=== PATIENT | male | born 1935 | race Caucasian/White ===

== ENCOUNTER 2016-11-28 10:47 | Inpatient (IN) | payer BC, MEDICARE ==
[~2016-11-28] VITALS: Ht 185.4 cm; Wt 88.5 kg
[2016-11-28] MEDS ORDERED: ACETAMINOPHEN 325 MG TAB PO PRN (17:25)
[2016-11-28 17:31] VITALS: BP_SYST 178; RESP 15; TEMP 98.1
[2016-11-28 17:32] VITALS: Ht 185.4 cm; Wt 88.5 kg
[2016-11-28] MEDS: CLOPIDOGREL 75 MG TAB PO SCH (17:56)
[2016-11-28] MEDS ORDERED: SODIUM CHLOR 0.9% W/KCL 20MEQ 1,000 ML IV SCH (18:10)
[2016-11-28 19:11] VITALS: BP_SYST 155; RESP 16; TEMP 97.5
[2016-11-28] MEDS: METOPROLOL XL 25 MG TAB PO SCH (20:15)
[2016-11-28] MEDS: COMBIGAN OP SOLN EYE EACH SCH (20:15)
[2016-11-28] MEDS ORDERED: TAMSULOSIN 0.4 MG CAP PO SCH (21:00)
[2016-11-28 23:46] VITALS: BP_SYST 176; RESP 18; TEMP 97.5
[2016-11-29 03:10] VITALS: BP_SYST 162; RESP 18; TEMP 97.8
[2016-11-29 07:40] VITALS: BP_SYST 144; RESP 18; TEMP 97.7
[2016-11-29] MEDS ORDERED: SODIUM CHLOR 0.9% W/KCL 20MEQ 1,000 ML IV SCH (09:15)
[2016-11-29] MEDS ORDERED: COMBIGAN OP SOLN EYE EACH SCH (09:21)
[2016-11-29] MEDS: ENOXAPARIN 40 MG/0.4 ML SYR SUBQ SCH (10:07)
[2016-11-29] MEDS: BRINZOLAMIDE 1% EYE LT SCH ×2 (10:07→19:51)
[2016-11-29] MEDS: CLOPIDOGREL 75 MG TAB PO SCH (10:08)
[2016-11-29] MEDS: MEMANTINE 10 MG TAB PO SCH ×2 (10:08→19:52)
[2016-11-29] MEDS: DONEPEZIL 10 MG TABLET PO SCH (10:08)
[2016-11-29] MEDS: ASPIRIN EC 81 MG TAB PO SCH (10:08)
[2016-11-29] MEDS: METOPROLOL XL 25 MG TAB PO SCH ×2 (10:08→19:52)
[2016-11-29] MEDS: COMBIGAN OP SOLN EYE EACH SCH ×2 (10:08→19:52)
[2016-11-29 10:47] VITALS: BP_SYST 146; RESP 18; TEMP 97.7
[2016-11-29 15:44] VITALS: BP_SYST 150; RESP 18; TEMP 97.8
[2016-11-29] MEDS: TAMSULOSIN 0.4 MG CAP PO SCH (16:07)
[2016-11-29] MEDS: TRAVOPROST Z 0.004% EYE EACH SCH (19:51)
[2016-11-29 20:31] VITALS: BP_SYST 143; RESP 24; TEMP 98.1
[2016-11-29 23:51] VITALS: BP_SYST 153; RESP 20; TEMP 97.5
[2016-11-30 03:59] VITALS: BP_SYST 157; RESP 20; TEMP 98.7
[2016-11-30 07:31] VITALS: BP_SYST 173; RESP 18; TEMP 97.6
[2016-11-30] MEDS: BRINZOLAMIDE 1% EYE LT SCH ×2 (09:38→20:25)
[2016-11-30] MEDS: ENOXAPARIN 40 MG/0.4 ML SYR SUBQ SCH (09:39)
[2016-11-30] MEDS: COMBIGAN OP SOLN EYE EACH SCH ×2 (09:39→20:24)
[2016-11-30] MEDS: MEMANTINE 10 MG TAB PO SCH ×2 (09:40→20:24)
[2016-11-30] MEDS: DONEPEZIL 10 MG TABLET PO SCH (09:40)
[2016-11-30] MEDS: METOPROLOL XL 25 MG TAB PO SCH ×2 (09:40→20:24)
[2016-11-30] MEDS: CLOPIDOGREL 75 MG TAB PO SCH (09:40)
[2016-11-30] MEDS: ASPIRIN EC 81 MG TAB PO SCH (09:40)
[2016-11-30] MEDS ORDERED: SODIUM CHLOR 0.9% W/KCL 20MEQ 1,000 ML IV SCH (10:00)
[2016-11-30 11:18] VITALS: BP_SYST 143; RESP 18; TEMP 97.6
[2016-11-30] MEDS: amLODIPine 2.5 MG TAB PO SCH (11:31)
[2016-11-30 15:22] VITALS: BP_SYST 194; RESP 18; TEMP 97.6
[2016-11-30 15:24] VITALS: BP_SYST 182
[2016-11-30] MEDS: TAMSULOSIN 0.4 MG CAP PO SCH (17:46)
[2016-11-30] MEDS: TRAVOPROST Z 0.004% EYE EACH SCH (20:25)
[2016-11-30 20:38] VITALS: BP_SYST 195; RESP 20; TEMP 97.5
[2016-12-01] VITALS (7 sets, daily range): BP systolic 157–207; RESP 16–20; TEMP 97.4–98.4
[2016-12-01] MEDS: METOPROLOL XL 25 MG TAB PO SCH (08:12)
[2016-12-01] MEDS: ASPIRIN EC 81 MG TAB PO SCH (08:12)
[2016-12-01] MEDS: MEMANTINE 10 MG TAB PO SCH (08:12)
[2016-12-01] MEDS: CLOPIDOGREL 75 MG TAB PO SCH (08:12)
[2016-12-01] MEDS: COMBIGAN OP SOLN EYE EACH SCH (08:13)
[2016-12-01] MEDS: amLODIPine 2.5 MG TAB PO SCH (08:13)
[2016-12-01] MEDS: DONEPEZIL 10 MG TABLET PO SCH (08:13)
[2016-12-01] MEDS: BRINZOLAMIDE 1% EYE LT SCH (08:14)
[2016-12-01] MEDS: ENOXAPARIN 40 MG/0.4 ML SYR SUBQ SCH (08:16)
[2016-12-01] MEDS ORDERED: MAG HYDROX 30 ML UDC PO ONE (12:15)
[2016-12-01] MEDS: BISACODYL 10 MG SUPP RECTAL ONE ×2 (12:28→13:15)
[2016-12-01] MEDS ORDERED: BISACODYL 10 MG SUPP RECTAL ONE (13:13)
== END 2016-12-01 17:53 | DRG 552 ==
LOC: ENRESERVTM → ENRESERVDT → ER 10:47 → EMR 16:33 → ENPENDDIS 16:33 → 5THW 17:20
PROVIDERS: ADMIT Internal Medicine; ATTEND Internal Medicine
CPT/HCPCS: 36415; 72100; 72170; 72220; 80048; 80053; 81001; 82306; 82607; 82746; 83735; 84439; 84443; 85025

== ENCOUNTER 2016-12-01 15:01 | Inpatient (IN) | payer MEDICARE, BC ==
[~2016-12-01] VITALS: Ht 185.4 cm; Wt 98.1 kg
[~2016-12-01 15:01] MED LIST: ACETAMINOPHEN 325 MG TAB PO PRN; ACETAMINOPHEN 650 MG SUPP RECTAL PRN; ALU/MAG/SIM 30 ML UDC PO PRN; FLEET ENEMA 132 ML BTL RECTAL PRN; MAG HYDROX 30 ML UDC PO PRN; PNEUMO VAC 25 MCG/0.5 ML VL IM.VACC ONE
[2016-12-01] MEDS: TAMSULOSIN 0.4 MG CAP PO SCH (18:03)
[2016-12-01 20:16] VITALS: BP_SYST 178; RESP 20; TEMP 97.8
[2016-12-01 20:17] VITALS: BP_SYST 200
[2016-12-01] MEDS: METOPROLOL XL 25 MG TAB PO SCH (20:55)
[2016-12-01] MEDS: MEMANTINE 10 MG TAB PO SCH (20:55)
[2016-12-01] MEDS ORDERED: TUBERCULIN PPD 5 UNIT SYR ID.VACC ONE (21:00)
[2016-12-01] MEDS: BRINZOLAMIDE 1% EYE LT SCH (21:02)
[2016-12-01] MEDS: COMBIGAN OP SOLN EYE EACH SCH (21:03)
[2016-12-01] MEDS: TRAVOPROST Z 0.004% EYE EACH SCH (21:04)
[2016-12-02 04:24] VITALS: BP_SYST 149; RESP 20; TEMP 97.8
[2016-12-02] MEDS: COMBIGAN OP SOLN EYE EACH SCH ×2 (08:34→20:44)
[2016-12-02] MEDS: CLOPIDOGREL 75 MG TAB PO SCH (08:34)
[2016-12-02] MEDS: BRINZOLAMIDE 1% EYE LT SCH ×2 (08:34→20:44)
[2016-12-02] MEDS: ASPIRIN EC 81 MG TAB PO SCH (08:35)
[2016-12-02] MEDS: MEMANTINE 10 MG TAB PO SCH ×2 (08:35→20:43)
[2016-12-02] MEDS: amLODIPine 2.5 MG TAB PO SCH (08:35)
[2016-12-02] MEDS: DONEPEZIL 10 MG TABLET PO SCH (08:35)
[2016-12-02] MEDS: METOPROLOL XL 25 MG TAB PO SCH ×2 (08:35→20:43)
[2016-12-02] MEDS: ENOXAPARIN 40 MG/0.4 ML SYR SUBQ SCH (08:37)
[2016-12-02 09:27] VITALS: BP_SYST 122; RESP 22; TEMP 97.6
[2016-12-02 09:28] VITALS: RESP 22
[2016-12-02] MEDS: TAMSULOSIN 0.4 MG CAP PO SCH (16:05)
[2016-12-02 16:23] VITALS: BP_SYST 139; RESP 20; TEMP 97.5
[2016-12-02] MEDS: TRAVOPROST Z 0.004% EYE EACH SCH (20:44)
[2016-12-03 06:14] VITALS: BP_SYST 172; RESP 18; TEMP 98.6
[2016-12-03] MEDS: MEMANTINE 10 MG TAB PO SCH ×2 (09:24→20:32)
[2016-12-03] MEDS: DONEPEZIL 10 MG TABLET PO SCH (09:24)
[2016-12-03] MEDS: CLOPIDOGREL 75 MG TAB PO SCH (09:24)
[2016-12-03] MEDS: ASPIRIN EC 81 MG TAB PO SCH (09:25)
[2016-12-03] MEDS: METOPROLOL XL 25 MG TAB PO SCH ×2 (09:25→20:32)
[2016-12-03] MEDS: amLODIPine 2.5 MG TAB PO SCH (09:25)
[2016-12-03] MEDS: ENOXAPARIN 40 MG/0.4 ML SYR SUBQ SCH (09:26)
[2016-12-03] MEDS: COMBIGAN OP SOLN EYE EACH SCH ×2 (09:29→20:27)
[2016-12-03] MEDS: BRINZOLAMIDE 1% EYE LT SCH ×2 (09:30→20:36)
[2016-12-03 09:35] VITALS: BP_SYST 135; RESP 20; TEMP 97.7
[2016-12-03 10:54] VITALS: BMI 30.8
[2016-12-03] MEDS: TAMSULOSIN 0.4 MG CAP PO SCH (17:29)
[2016-12-03 18:17] VITALS: BP_SYST 118; RESP 18; TEMP 97.8
[2016-12-03] MEDS: TRAVOPROST Z 0.004% EYE EACH SCH (20:31)
[2016-12-03] MEDS: SKIN TEST: READ AND RECORD XX SCH (20:39)
[2016-12-04 01:37] VITALS: BP_SYST 109; RESP 18; TEMP 97.3
[2016-12-04 01:38] VITALS: TEMP 97.3
[2016-12-04 02:02] VITALS: Ht 185.4 cm; Wt 98.1 kg
[2016-12-04] MEDS: ENOXAPARIN 40 MG/0.4 ML SYR SUBQ SCH (08:07)
[2016-12-04] MEDS: COMBIGAN OP SOLN EYE EACH SCH ×2 (08:09→20:48)
[2016-12-04] MEDS: BRINZOLAMIDE 1% EYE LT SCH ×2 (08:09→20:53)
[2016-12-04] MEDS: CLOPIDOGREL 75 MG TAB PO SCH (08:10)
[2016-12-04] MEDS: DONEPEZIL 10 MG TABLET PO SCH (08:10)
[2016-12-04] MEDS: METOPROLOL XL 25 MG TAB PO SCH ×2 (08:11→20:49)
[2016-12-04] MEDS: MEMANTINE 10 MG TAB PO SCH ×2 (08:11→20:49)
[2016-12-04] MEDS: ASPIRIN EC 81 MG TAB PO SCH (08:11)
[2016-12-04] MEDS: amLODIPine 2.5 MG TAB PO SCH (08:11)
[2016-12-04 09:16] VITALS: BP_SYST 101; RESP 18; TEMP 98.2
[2016-12-04] MEDS: TAMSULOSIN 0.4 MG CAP PO SCH (16:45)
[2016-12-04 19:51] VITALS: BP_SYST 117; RESP 18; TEMP 97.4
[2016-12-04 20:48] VITALS: BP_SYST 124
[2016-12-04] MEDS: TRAVOPROST Z 0.004% EYE EACH SCH (20:55)
[2016-12-05 02:30] VITALS: TEMP 98.6
[2016-12-05] MEDS: POLYETHYLENE GLYCOL 17 GM PACKET PO PRN (09:16)
[2016-12-05] MEDS: CLOPIDOGREL 75 MG TAB PO SCH (09:17)
[2016-12-05] MEDS: ENOXAPARIN 40 MG/0.4 ML SYR SUBQ SCH (09:17)
[2016-12-05] MEDS: ASPIRIN EC 81 MG TAB PO SCH (09:17)
[2016-12-05] MEDS: amLODIPine 2.5 MG TAB PO SCH (09:17)
[2016-12-05] MEDS: DONEPEZIL 10 MG TABLET PO SCH (09:17)
[2016-12-05] MEDS: METOPROLOL XL 25 MG TAB PO SCH ×2 (09:17→21:52)
[2016-12-05] MEDS: MEMANTINE 10 MG TAB PO SCH ×2 (09:17→21:52)
[2016-12-05] MEDS: BRINZOLAMIDE 1% EYE LT SCH ×2 (09:18→21:54)
[2016-12-05] MEDS: COMBIGAN OP SOLN EYE EACH SCH ×2 (09:18→21:54)
[2016-12-05 11:06] VITALS: BP_SYST 122; RESP 18; TEMP 98.1
[2016-12-05 15:35] VITALS: BP_SYST 152; RESP 18; TEMP 98.1
[2016-12-05] MEDS: TAMSULOSIN 0.4 MG CAP PO SCH (16:43)
[2016-12-05] MEDS: TRAVOPROST Z 0.004% EYE EACH SCH (21:51)
[2016-12-06 02:23] VITALS: BP_SYST 151; RESP 18; TEMP 97.9
[2016-12-06] MEDS: MEMANTINE 10 MG TAB PO SCH ×2 (08:57→20:39)
[2016-12-06] MEDS: ASPIRIN EC 81 MG TAB PO SCH (08:57)
[2016-12-06] MEDS: DONEPEZIL 10 MG TABLET PO SCH (08:57)
[2016-12-06] MEDS: METOPROLOL XL 25 MG TAB PO SCH ×2 (08:58→20:39)
[2016-12-06] MEDS: CLOPIDOGREL 75 MG TAB PO SCH (08:58)
[2016-12-06] MEDS: amLODIPine 2.5 MG TAB PO SCH (08:58)
[2016-12-06] MEDS: BRINZOLAMIDE 1% EYE LT SCH ×2 (08:59→20:44)
[2016-12-06] MEDS: COMBIGAN OP SOLN EYE EACH SCH ×2 (08:59→20:39)
[2016-12-06] MEDS: ENOXAPARIN 40 MG/0.4 ML SYR SUBQ SCH (08:59)
[2016-12-06 14:57] VITALS: BP_SYST 150; TEMP 97.5
[2016-12-06 14:58] VITALS: RESP 18; TEMP 97.5
[2016-12-06] MEDS: TAMSULOSIN 0.4 MG CAP PO SCH (17:29)
[2016-12-06] MEDS: TRAVOPROST Z 0.004% EYE EACH SCH (20:41)
[2016-12-07 05:20] VITALS: BP_SYST 167; RESP 20; TEMP 98.3
[2016-12-07] MEDS: COMBIGAN OP SOLN EYE EACH SCH ×2 (08:32→20:59)
[2016-12-07] MEDS: BRINZOLAMIDE 1% EYE LT SCH ×2 (08:33→20:56)
[2016-12-07] MEDS: ASPIRIN EC 81 MG TAB PO SCH (08:33)
[2016-12-07] MEDS: MEMANTINE 10 MG TAB PO SCH ×2 (08:33→20:57)
[2016-12-07] MEDS: CLOPIDOGREL 75 MG TAB PO SCH (08:33)
[2016-12-07] MEDS: amLODIPine 2.5 MG TAB PO SCH (08:33)
[2016-12-07] MEDS: DONEPEZIL 10 MG TABLET PO SCH (08:33)
[2016-12-07] MEDS: METOPROLOL XL 25 MG TAB PO SCH ×2 (08:34→20:57)
[2016-12-07] MEDS: ENOXAPARIN 40 MG/0.4 ML SYR SUBQ SCH (08:34)
[2016-12-07 10:02] VITALS: BP_SYST 111; RESP 18; TEMP 98.2
[2016-12-07] MEDS: TAMSULOSIN 0.4 MG CAP PO SCH (16:54)
[2016-12-07 20:17] VITALS: BP_SYST 134; RESP 20; TEMP 98.3
[2016-12-07] MEDS: TRAVOPROST Z 0.004% EYE EACH SCH (21:00)
[2016-12-08 05:06] VITALS: BP_SYST 168; RESP 18; TEMP 98.1
[2016-12-08] MEDS: BRINZOLAMIDE 1% EYE LT SCH ×2 (08:34→20:40)
[2016-12-08] MEDS: COMBIGAN OP SOLN EYE EACH SCH ×2 (08:35→20:37)
[2016-12-08] MEDS: DONEPEZIL 10 MG TABLET PO SCH (08:36)
[2016-12-08] MEDS: ENOXAPARIN 40 MG/0.4 ML SYR SUBQ SCH (08:36)
[2016-12-08] MEDS: CLOPIDOGREL 75 MG TAB PO SCH (08:37)
[2016-12-08] MEDS: MEMANTINE 10 MG TAB PO SCH ×2 (08:37→20:38)
[2016-12-08] MEDS: ASPIRIN EC 81 MG TAB PO SCH (08:37)
[2016-12-08] MEDS: METOPROLOL XL 25 MG TAB PO SCH ×2 (08:37→20:39)
[2016-12-08] MEDS: amLODIPine 2.5 MG TAB PO SCH (08:38)
[2016-12-08 11:11] VITALS: BP_SYST 147; RESP 20; TEMP 98.5
[2016-12-08 15:45] VITALS: BP_SYST 150; RESP 18; TEMP 98.3
[2016-12-08] MEDS: TAMSULOSIN 0.4 MG CAP PO SCH (17:23)
[2016-12-08] MEDS: TRAVOPROST Z 0.004% EYE EACH SCH (20:41)
[2016-12-08 20:46] VITALS: BP_SYST 151; RESP 18; TEMP 97.5
[2016-12-08] MEDS ORDERED: TUBERCULIN PPD 5 UNIT SYR ID.VACC ONE (21:00)
[2016-12-09 03:17] VITALS: BP_SYST 148; RESP 18
[2016-12-09] MEDS: POLYETHYLENE GLYCOL 17 GM PACKET PO PRN (03:17)
[2016-12-09 03:18] VITALS: TEMP 97.7
[2016-12-09] MEDS: COMBIGAN OP SOLN EYE EACH SCH ×2 (08:26→20:33)
[2016-12-09] MEDS: BRINZOLAMIDE 1% EYE LT SCH ×2 (08:26→20:36)
[2016-12-09] MEDS: ASPIRIN EC 81 MG TAB PO SCH (08:26)
[2016-12-09] MEDS: CLOPIDOGREL 75 MG TAB PO SCH (08:27)
[2016-12-09] MEDS: MEMANTINE 10 MG TAB PO SCH ×2 (08:27→20:32)
[2016-12-09] MEDS: DONEPEZIL 10 MG TABLET PO SCH (08:27)
[2016-12-09] MEDS: METOPROLOL XL 25 MG TAB PO SCH ×2 (08:27→20:32)
[2016-12-09] MEDS: amLODIPine 2.5 MG TAB PO SCH (08:27)
[2016-12-09] MEDS: ENOXAPARIN 40 MG/0.4 ML SYR SUBQ SCH (08:28)
[2016-12-09 09:36] VITALS: BP_SYST 101; RESP 18; TEMP 97.5
[2016-12-09] MEDS: TAMSULOSIN 0.4 MG CAP PO SCH (16:16)
[2016-12-09 20:18] VITALS: BP_SYST 117; RESP 20; TEMP 98.4
[2016-12-09] MEDS: TRAVOPROST Z 0.004% EYE EACH SCH (20:37)
[2016-12-10 04:06] VITALS: BP_SYST 144; TEMP 97.6
[2016-12-10] MEDS: TRAVOPROST Z 0.004% EYE EACH SCH (08:24)
[2016-12-10] MEDS: ENOXAPARIN 40 MG/0.4 ML SYR SUBQ SCH (08:24)
[2016-12-10 08:25] VITALS: BP_SYST 135; RESP 18; TEMP 98.1
[2016-12-10] MEDS: ASPIRIN EC 81 MG TAB PO SCH (08:25)
[2016-12-10] MEDS: amLODIPine 2.5 MG TAB PO SCH (08:25)
[2016-12-10] MEDS: CLOPIDOGREL 75 MG TAB PO SCH (08:25)
[2016-12-10] MEDS: METOPROLOL XL 25 MG TAB PO SCH ×2 (08:25→20:15)
[2016-12-10] MEDS: COMBIGAN OP SOLN EYE EACH SCH ×2 (08:25→20:13)
[2016-12-10] MEDS: MEMANTINE 10 MG TAB PO SCH ×2 (08:25→20:14)
[2016-12-10] MEDS: DONEPEZIL 10 MG TABLET PO SCH (08:25)
[2016-12-10] MEDS: BRINZOLAMIDE 1% EYE LT SCH ×2 (08:25→20:16)
[2016-12-10 13:45] VITALS: BP_SYST 140; RESP 20; TEMP 98.3
[2016-12-10 15:32] VITALS: BP_SYST 123; RESP 18; TEMP 97.7
[2016-12-10] MEDS: TAMSULOSIN 0.4 MG CAP PO SCH (17:26)
[2016-12-10] MEDS: SKIN TEST: READ AND RECORD XX SCH (20:25)
[2016-12-11 01:18] VITALS: BP_SYST 109; RESP 18; TEMP 98.3
[2016-12-11 01:19] VITALS: TEMP 98.3
[2016-12-11] MEDS: MICONAZOLE 2% PWD TOPICAL SCH ×2 (09:30→20:15)
[2016-12-11] MEDS: amLODIPine 2.5 MG TAB PO SCH (10:04)
[2016-12-11] MEDS: DONEPEZIL 10 MG TABLET PO SCH (10:04)
[2016-12-11] MEDS: CLOPIDOGREL 75 MG TAB PO SCH (10:04)
[2016-12-11] MEDS: POLYETHYLENE GLYCOL 17 GM PACKET PO PRN (10:04)
[2016-12-11] MEDS: METOPROLOL XL 25 MG TAB PO SCH ×2 (10:05→20:12)
[2016-12-11] MEDS: ENOXAPARIN 40 MG/0.4 ML SYR SUBQ SCH (10:06)
[2016-12-11] MEDS: ASPIRIN EC 81 MG TAB PO SCH (10:06)
[2016-12-11] MEDS: MEMANTINE 10 MG TAB PO SCH ×2 (10:07→20:11)
[2016-12-11] MEDS: COMBIGAN OP SOLN EYE EACH SCH ×2 (10:07→20:14)
[2016-12-11] MEDS: BRINZOLAMIDE 1% EYE LT SCH ×2 (10:07→20:14)
[2016-12-11 10:12] VITALS: BP_SYST 120; RESP 18; TEMP 97.8
[2016-12-11 16:10] VITALS: BP_SYST 135; RESP 18; TEMP 98.3
[2016-12-11] MEDS: TAMSULOSIN 0.4 MG CAP PO SCH (18:21)
[2016-12-11] MEDS: TRAVOPROST Z 0.004% EYE EACH SCH (20:13)
[2016-12-12] MEDS: amLODIPine 2.5 MG TAB PO SCH (08:14)
[2016-12-12] MEDS: METOPROLOL XL 25 MG TAB PO SCH ×2 (08:14→20:48)
[2016-12-12] MEDS: DONEPEZIL 10 MG TABLET PO SCH (08:14)
[2016-12-12] MEDS: CLOPIDOGREL 75 MG TAB PO SCH (08:14)
[2016-12-12] MEDS: ASPIRIN EC 81 MG TAB PO SCH (08:14)
[2016-12-12] MEDS: MEMANTINE 10 MG TAB PO SCH ×2 (08:14→20:47)
[2016-12-12] MEDS: ENOXAPARIN 40 MG/0.4 ML SYR SUBQ SCH (08:15)
[2016-12-12] MEDS: BRINZOLAMIDE 1% EYE LT SCH ×2 (08:16→20:50)
[2016-12-12] MEDS: MICONAZOLE 2% PWD TOPICAL SCH ×2 (08:16→20:49)
[2016-12-12] MEDS: COMBIGAN OP SOLN EYE EACH SCH ×2 (08:16→20:47)
[2016-12-12 09:58] VITALS: BP_SYST 110; RESP 18; TEMP 97.9
[2016-12-12 15:28] VITALS: BP_SYST 131; RESP 18; TEMP 97.9
[2016-12-12] MEDS: TRAVOPROST Z 0.004% EYE EACH SCH (20:49)
[2016-12-12] MEDS: TAMSULOSIN 0.4 MG CAP PO SCH (20:59)
[2016-12-13 00:43] VITALS: BP_SYST 148; RESP 18; TEMP 97.3
[2016-12-13 00:44] VITALS: TEMP 97.3
[2016-12-13] MEDS: ASPIRIN EC 81 MG TAB PO SCH (08:40)
[2016-12-13] MEDS: amLODIPine 2.5 MG TAB PO SCH (08:40)
[2016-12-13] MEDS: DONEPEZIL 10 MG TABLET PO SCH (08:40)
[2016-12-13] MEDS: MEMANTINE 10 MG TAB PO SCH (08:40)
[2016-12-13] MEDS: MICONAZOLE 2% PWD TOPICAL SCH (08:42)
[2016-12-13] MEDS: METOPROLOL XL 25 MG TAB PO SCH (08:42)
[2016-12-13] MEDS: ENOXAPARIN 40 MG/0.4 ML SYR SUBQ SCH (08:44)
[2016-12-13] MEDS: CLOPIDOGREL 75 MG TAB PO SCH (08:46)
[2016-12-13] MEDS: BRINZOLAMIDE 1% EYE LT SCH (08:47)
[2016-12-13] MEDS: COMBIGAN OP SOLN EYE EACH SCH (08:48)
[2016-12-13 10:21] VITALS: BP_SYST 104; RESP 18; TEMP 97.4
[2016-12-13 12:26] VITALS: BP_SYST 104; RESP 18; TEMP 97.4
== END 2016-12-13 13:55 | disposition home or self-care (01) | DRG 556 ==
LOC: PREINTOOBSV 15:01 → PREOBSVTOIN 15:01 → NF 15:05 → ENPENDDIS 15:05
PROVIDERS: ADMIT Internal Medicine; ATTEND Internal Medicine
DX: R26.2 Difficulty in walking, not elsewhere classified (principal); S32.019A Unspecified fracture of first lumbar vertebra, initial encounter for closed fracture; F03.90 Unspecified dementia, unspecified severity, without behavioral disturbance, psychotic disturbance, mood disturbance, and anxiety; E78.5 Hyperlipidemia, unspecified; N40.0 Benign prostatic hyperplasia without lower urinary tract symptoms
CPT/HCPCS: 36415; 80048; 83880; 85025; 86580